=== PATIENT | male | born 2000 ===

== ENCOUNTER 2025-04-01 13:20 | Emergency (ER) | payer SELFPAY ==
[2025-04-01 13:22] VITALS: BP 108/39; PULSE 120; RESP 20; TEMP 36.4; O2SAT 99
--- NOTE | 2025-04-01 13:38 | PC.NURSE ---
upon being brought to his room, the patient was recording the technicians and refusing to be hooked up to the vital machine. patient refused to stop recording because he know my rights, and if you choose to not help me that's on you security at bedside to ask the patient to stop recording and to delete any recorded videos or audio that he has on his phone. patient states he has rights and has refused to agree to stop recording because it's just audio patient stated that we could call the police if we wish he ain't talking to no body, I know my rights, if you refuse to help me that's a lawsuit for me Laura Gold RN notified, and she called PD
--- NOTE | 2025-04-01 13:40 | PC.NURSE ---
Patient video and audio recording staff. Security contacted to help with situation. Security unable to get patient to open phone and delete recordings. Patient uncooperative and refusing to delete recordings because I know my rights. Vaishali IGLL contacted d/t patient being threatening and aggresive towards staff.
--- NOTE | 2025-04-01 13:42 | PC.NURSE ---
PD arrival at this time.
--- NOTE | 2025-04-01 13:49 | PC.NURSE ---
This RN to room with ED security and PD to establish goals of care. Patient sitting comfortably on stretcher and texting on his phone. Patient informed we would like to evaluate and treat them. Patient reporting, I just want to be discharged. Patient informed he had not been seen by a provider so he was welcome to leave. Patient ambulatory out of ED with steady gait and in no acute distress with PD and security following.
--- NOTE | 2025-04-01 14:07 | PC.NURSE ---
pt got frustrated when asked to get into a gown and get into the stretcher to get hooked up to the monitor pt than began recording on his phone saying ''do you see how this hospital is treating me. Tech stated he wasn't allowed to record in the hospital and pt stated he knew his rights
== END 2025-04-01 14:43 | disposition left against medical advice (07) ==
LOC: ANHED 14:00
DX: R10.9 Unspecified abdominal pain (principal)
CPT/HCPCS: 99199